=== PATIENT | male | born 1965 | race Caucasian/White ===

== ENCOUNTER → 2019-01-21 12:33 | Outpatient (CLI) | payer BC, SELFPAY ==
--- NOTE | 2019-01-21 12:35 | FL_ITS ---
FL voiding cystourethrogram CLINICAL INDICATION: ITS.REASON: POST OP-PROSTATE CANCER ORDERING PHYSICIAN: Renny Landin MD PATIENT AGE: 53 years Comparison: None Fluoroscopy time: 1 minute and 10 seconds FINDINGS: Study Abroad Coordinator exam is unremarkable. Contrast is instilled into the urinary bladder through a Varghese catheter. Patient could only hold approximately 150 cc of contrast. Fluoroscopic and KUB images are performed. There is no evidence of bladder leak. Post void exam is unremarkable. IMPRESSION: No evidence of contrast extravasation
== END ==
PROVIDERS: PCP Family Medicine; Visit Provider Urology
DX: C61 Malignant neoplasm of prostate (principal)
CPT/HCPCS: 74455; Q9966

== ENCOUNTER → 2019-02-05 10:53 | Outpatient (CLI) | payer BC, SELFPAY ==
[2019-02-05 13:58] LABS: Prostate Specific Ag, Diagnost < 0.05 ng/mL (0.0-4.0)
== END ==
PROVIDERS: Visit Provider Urology
DX: C61 Malignant neoplasm of prostate (principal)
CPT/HCPCS: 36415; 84153

== ENCOUNTER → 2019-05-13 12:38 | Outpatient (CLI) | payer BC, SELFPAY ==
[2019-05-13 14:56] LABS: Prostate Specific Ag, Diagnost 0 ng/mL (0.0-4.0)
== END ==
PROVIDERS: Visit Provider Urology
DX: C61 Malignant neoplasm of prostate (principal)
CPT/HCPCS: 36415; 84153

== ENCOUNTER → 2019-08-11 18:03 | Outpatient (CLI) | payer BC, SELFPAY ==
[2019-08-11 22:28] LABS: Prostate Specific Ag, Diagnost 0 ng/mL (0.0-4.0)
== END ==
PROVIDERS: Visit Provider Urology
DX: C61 Malignant neoplasm of prostate (principal)
CPT/HCPCS: 36415; 84153

== ENCOUNTER 2022-05-04 15:05 | Emergency (ER) | payer BC, SELFPAY ==
[2022-05-04 15:15] VITALS: BP 142/96; PULSE 66; RESP 18; TEMP 36.7; O2SAT 96; BMI 28.5
[2022-05-04 15:28] VITALS: BMI 28.5
[2022-05-04 15:30] VITALS: BP 118/80; PULSE 63; O2SAT 97
--- NOTE | 2022-05-04 15:34 | ECG_ITS ---
APPROVED REPORT Exam: Resting ECG HR:62 bpm ECG Measurements Heart Rate 62 AXES LA 179 P 42 QRSd 83 QRS 12 QT 383 T 37 QTc 388 Conclusion SINUS RHYTHM NORMAL ECG UNCONFIRMED REPORT Electronically signed by : Christiano Parry MD 05/06/2022 08:06:32
--- NOTE | 2022-05-04 15:36 | XR_ITS ---
FINAL REPORT CLINICAL HISTORY: cough, weakness FINDINGS: PA and lateral views of the chest were obtained. There is no prior exam for comparison. The cardiac and mediastinal silhouettes are within normal limits. The lungs are clear. There is no pleural effusion or pneumothorax. No acute osseous abnormality is identified. IMPRESSION: No radiographic evidence of acute cardiac or pulmonary disease. Reviewed, Interpreted and Dictated by Navya Troy MD Transcribed by Kailyn Townsend Authenticated and [facility]
--- NOTE | 2022-05-04 15:44 | PC.NURSE ---
Pt transported to radiology via wheelchair.
[2022-05-04 15:50] LABS: Anion Gap 12.7 mEq/L (5-15); Blood Urea Nitrogen 19 mg/dl (9-20); Carbon Dioxide 27 mmol/L (22.0-30.0); Chloride 104 mmol/L (98-107); Creatinine Clearance Estimated 66 mL/min (50-200); Estimated Glomerular Filt Rate 57 ml/min (>60); GFR (African American) 69 ML/MIN (>60); Glucose 105 mg/dl (74-100); Potassium 4.7 mmoL/L (3.5-5.1); Sodium 139 mmol/L (136-145)
[2022-05-04 16:00] VITALS: BP 114/81; PULSE 65; O2SAT 97
[2022-05-04 16:03] LABS: Troponin I < 0.01 ng/ml (0.00-0.034)
--- NOTE | 2022-05-04 16:11 | CT_ITS ---
PROCEDURE INFORMATION: Exam: CTA Neck With Contrast Exam date and time: 05/04/2022 4:50 PM Age: 56 years old Clinical indication: Weakness; Additional info: R sided weakness TECHNIQUE: Imaging protocol: Computed tomographic angiography of the neck with contrast. 3D rendering (Not supervised by radiologist): MIP and/or 3D reconstructed images were created by the technologist. Radiation optimization: All CT scans at this facility use at least one of these dose optimization techniques: automated exposure control; mA and/or kV adjustment per patient size (includes targeted exams where dose is matched to clinical indication); or iterative reconstruction. Contrast material: ISOVUE 370; Contrast volume: 100 ml; Contrast route: INTRAVENOUS (IV); COMPARISON: CT CERVICAL SPINE WO CON 05/04/2022 4:41 PM FINDINGS: Right common carotid artery: No stenosis. No dissection or occlusion. Right internal carotid artery: No stenosis of the extracranial segment. No dissection or occlusion. Right external carotid artery: No occlusion or stenosis of the origin. Left common carotid artery: No stenosis. No dissection or occlusion. Left internal carotid artery: Trace proximal left ICA calcified atherosclerosis does not contribute to stenosis. Left external carotid artery: No occlusion or stenosis of the origin. Right vertebral artery: The right vertebral artery is dominant. Patent. 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 Patent. The left vertebral artery arises directly from the aortic arch. Soft tissues: Normal. No significant soft tissue swelling. Bones/joints: Mild upper thoracic levoconvex scoliosis. 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 Moderate degenerative changes at C1-C2. Oldd-jc-axebvlze disc height loss and spondylosis with uncovertebral arthropathy at C3-C4. No significant cervical central spinal canal stenoses. Uncovertebral and facet arthropathy causing bilateral neural foraminal stenoses at C3-C4. IMPRESSION: 1. No acute vascular findings in the neck. 2. 0% right ICA stenosis. 3. 0% left ICA stenosis. 4. The vertebral arteries are patent without stenoses. REFERENCES: NASCET CRITERIA. The degree of internal carotid artery stenosis is based on NASCET criteria. Normal is no stenosis. Mild is less than 50% stenosis. Moderate is 50-69% stenosis. Severe is 70% to 99% stenosis. Total occlusion is no detectable patent lumen.
--- NOTE | 2022-05-04 16:11 | CT_ITS ---
PROCEDURE INFORMATION: Exam: CTA Head With Contrast, Arteriography Exam date and time: 05/04/2022 4:50 PM Age: 56 years old Clinical indication: Weakness; Additional info: R sided weakness TECHNIQUE: Imaging protocol: Computed tomographic angiography of the head with contrast. Exam focused on the arteries. 3D rendering (Not supervised by radiologist): MIP and/or 3D reconstructed images were created by the technologist. Radiation optimization: All CT scans at this facility use at least one of these dose optimization techniques: automated exposure control; mA and/or kV adjustment per patient size (includes targeted exams where dose is matched to clinical indication); or iterative reconstruction. Contrast material: ISOVUE 370; Contrast volume: 100 ml; Contrast route: INTRAVENOUS (IV); COMPARISON: CT HEAD/BRAIN WO CON 05/04/2022 4:39 PM FINDINGS: ANTERIOR CIRCULATION: Right internal carotid artery: Unremarkable. Intracranial segment is patent with no significant stenosis. No aneurysm. Right middle cerebral artery: Unremarkable. No occlusion or significant stenosis. No aneurysm. Right anterior cerebral artery: Unremarkable. No occlusion or significant stenosis. No aneurysm. Left internal carotid artery: Unremarkable. Intracranial segment is patent with no significant stenosis. No aneurysm. Left middle cerebral artery: Unremarkable. No occlusion or significant stenosis. No aneurysm. Left anterior cerebral artery: Unremarkable. No occlusion or significant stenosis. No aneurysm. POSTERIOR CIRCULATION: Right vertebral artery: The right vertebral artery is dominant. Patent. 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 Patent. Basilar artery: Unremarkable. No occlusion or significant stenosis. No aneurysm. Right posterior cerebral artery: Patent. There is a origin of the right posterior cerebral artery. Left posterior cerebral artery: Unremarkable. No occlusion or significant stenosis. No aneurysm. Brain: No definite mass, mass effect, or midline shift. Cerebral ventricles: No ventriculomegaly. Bones/joints: Unremarkable. No acute fracture. Soft tissues: Unremarkable. IMPRESSION: No proximal intracranial arterial occlusion or stenosis seen.
--- NOTE | 2022-05-04 16:11 | CT_ITS ---
PROCEDURE INFORMATION: Exam: CT Head Without Contrast Exam date and time: 05/04/2022 4:39 PM Age: 56 years old Clinical indication: Weakness, extremity; Right; Additional info: R sided weakness TECHNIQUE: Imaging protocol: Computed tomography of the head without contrast. Radiation optimization: All CT scans at this facility use at least one of these dose optimization techniques: automated exposure control; mA and/or kV adjustment per patient size (includes targeted exams where dose is matched to clinical indication); or iterative reconstruction. COMPARISON: No relevant prior studies available. FINDINGS: Brain: No evolving territorial infarct or intracranial hemorrhage seen. Hypodensities in the subinsular regions may represent perivascular spaces and/or chronic lacunar infarcts. Cerebral ventricles: No ventriculomegaly. Paranasal sinuses: The right maxillary sinus is completely opacified by mucosal disease. The sinus contents appear partially hyperdense and calcified consistent with inspissated secretions or superimposed fungal sinusitis. Similarly, near complete opacification of both sphenoid sinuses. There is sporadic bilateral ethmoid sinus opacity. A small retention cyst or polyp in the left maxillary sinus. Mastoid air cells: Visualized mastoid air cells are well aerated. Bones/joints: Unremarkable. No acute fracture. Soft tissues: Unremarkable. IMPRESSION: 1. No acute intracranial abnormality seen. 2. Severe, chronic sinusitis, as above.
--- NOTE | 2022-05-04 16:11 | HMH.EDGENADL ---
Discharge Plan Disposition Patient Disposition: Home, Self-Care Condition: Good Chief Complaint: Weakness Prescriptions Prescriptions: New methocarbamol 500 mg tablet 500 mg PO Q8H PRN (Reason: pain) Qty: 20 0RF naproxen 500 mg tablet 500 mg PO Q12H PRN (Reason: pain) Qty: 30 0RF No Action lisinopril 5 mg tablet 5 mg PO DAILY atorvastatin 10 mg tablet 10 mg PO DAILY metformin 500 mg tablet 500 mg PO BID cholecalciferol (vitamin D3) 1,000 unit tablet 1,000 unit PO DAILY mecobalamin (vitamin B12) 1,000 mcg tablet,disintegrating 1,000 mcg SUBLINGUAL DAILY Referrals Referrals: Provider,Referral, MD [Referring] - Enter time for follow up Activity Restrictions/Add. Instructions Additional Instructions/Restrictions: You were evaluated in the emergency department today. Please follow-up with your primary care provider over the next 48 hours. Return to the emergency department for any new or worsening symptoms. 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 by RN): pt states he was at work today when he became exhausted and had to sit down, he states he has had numbness and tingling off and on for 2 weeks in his R arm and R leg, he becomes easily winded when going uphill History of Present Illness HPI narrative: This patient is a 56-year-old male with a history of numbness and tingling of the right upper and lower extremity that has been intermittent for the past month. He states that it is worse in his right leg. He states that he noticed at work today when working overhead with his hands, he got super lightheaded, fatigued, and had to sit down. He states that he also noticed he becomes more short of breath when walking uphill. He denies any recent headaches, vision changes, facial droop, slurred speech, chest pain, abdominal pain, nausea, vomiting, change in bowel movements, rashes, or swelling. He denies any neck or back pain. He denies any recent injuries. He denies any saddle anesthesia, incontinence, or other concerns. Related Data Home Medications Medication Instructions Recorded Confirmed atorvastatin 10 mg tablet 10 mg PO DAILY Cholesterol 11/01/18 05/04/22 cholecalciferol (vitamin D3) 25 1,000 unit PO DAILY Supplement 11/01/18 05/04/22 mcg (1,000 unit) tablet lisinopril 5 mg tablet 5 mg PO DAILY blood pressure 11/01/18 05/04/22 mecobalamin (vitamin B12) 1,000 1,000 mcg sublingual DAILY 11/01/18 05/04/22 mcg disintegrating Supplement tablet,sublingual metformin 500 mg tablet 500 mg PO BID Diabetes 11/01/18 05/04/22 Previous Rx's Medication Instructions Recorded methocarbamol 500 mg tablet 500 mg PO Q8H PRN pain #20 tabs 05/04/22 naproxen 500 mg tablet 500 mg PO Q12H PRN pain #30 tabs 05/04/22 Allergies Allergy/AdvReac Type Severity Reaction Status Date / Time Penicillins [PENICILLINS] Allergy Unknown Verified 08/30/19 11:41 PFSH PFSH Social History Smoking Status: Never smoker alcohol intake: never substance use type: denies use current occupational status: employed household members: spouse housing: house caffeine: No ROS Obtained: Yes All systems reviewed & no additional complaints except as documented 14 point review of system obtained and negative except otherwise mentioned in HPI. Physical Exam General General appearance: alert and in no apparent
--- NOTE | 2022-05-04 16:15 | CT_ITS ---
PROCEDURE INFORMATION: Exam: CT Cervical Spine Without Contrast Exam date and time: 05/04/2022 4:41 PM Age: 56 years old Clinical indication: Numbness TECHNIQUE: Imaging protocol: Computed tomography of the cervical spine without contrast. Radiation optimization: All CT scans at this facility use at least one of these dose optimization techniques: automated exposure control; mA and/or kV adjustment per patient size (includes targeted exams where dose is matched to clinical indication); or iterative reconstruction. COMPARISON: CT HEAD/BRAIN WO CON 05/04/2022 4:39 PM FINDINGS: Bones/joints: 2 mm of degenerative retrolisthesis of C3 on C4. No acute fracture seen. There is kbnu-ze-awigczlh posterior disc height loss with endplate osteophytic ridging at C3-C4. Elsewhere, the cervical spine demonstrates mild prevertebral spondylosis. Degenerative changes are moderate in degree at C2-C3. C2-C3: Mild uncovertebral arthropathy. No stenoses. C3-C4: Slight retrolisthesis. Mild disc osteophyte complex and ligamentum flavum buckling. The central spinal canal remains patent. Uncovertebral and facet arthropathy causing moderate to severe left and moderate right neural foraminal stenoses. C4-C5: No significant disc protrusion. No severe spinal canal stenosis. No significant neural foraminal narrowing. C5-C6: No significant disc protrusion. No severe spinal canal stenosis. No significant neural foraminal narrowing. C6-C7: No significant disc protrusion. No severe spinal canal stenosis. No significant neural foraminal narrowing. C7-T1: No significant disc protrusion. No severe spinal canal stenosis. No significant neural foraminal narrowing. Lungs: Lung apices are normal. Vasculature: Trace proximal left ICA calcified plaque. Soft tissues: Unremarkable. IMPRESSION: Degenerative neural foraminal stenoses at C3-C4.
--- NOTE | 2022-05-04 16:15 | CT_ITS ---
PROCEDURE INFORMATION: Exam: CT Lumbar Spine Without Contrast Exam date and time: 05/04/2022 4:47 PM Age: 56 years old Clinical indication: Numbness TECHNIQUE: Imaging protocol: Computed tomography of the lumbar spine without contrast. Radiation optimization: All CT scans at this facility use at least one of these dose optimization techniques: automated exposure control; mA and/or kV adjustment per patient size (includes targeted exams where dose is matched to clinical indication); or iterative reconstruction. COMPARISON: None FINDINGS: Bones/joints: No acute fracture. Normal alignment. Discs/Spinal canal/Neural foramina: Mild tapering of the spinal canal secondary to short pedicles. At L4-L5: 2.5-3 mm broad-based right greater than left lateral disc bulge. Mild-moderate right lateral recess and mild right neural foraminal stenosis. At L5-S1: Approximate 3 mm predominant central disc bulge. Soft tissues: Unremarkable. IMPRESSION: 1. At L4-L5: 2.5-3 mm broad-based right greater than left lateral disc bulge. Mild-moderate right lateral recess and mild right neural foraminal stenosis. 2. At L5-S1: Approximate 3 mm predominant central disc bulge.
--- NOTE | 2022-05-04 16:15 | CT_ITS ---
PROCEDURE INFORMATION: Exam: CT Thoracic Spine Without Contrast Exam date and time: 05/04/2022 4:44 PM Age: 56 years old Clinical indication: Numbness TECHNIQUE: Imaging protocol: Computed tomography of the thoracic spine without contrast. Radiation optimization: All CT scans at this facility use at least one of these dose optimization techniques: automated exposure control; mA and/or kV adjustment per patient size (includes targeted exams where dose is matched to clinical indication); or iterative reconstruction. COMPARISON: CT CERVICAL SPINE WO CON 05/04/2022 4:41 PM FINDINGS: Bones/joints: Mild scoliosis of the upper thoracic spine convexity to the left. Near complete fusion of the T3 and 4 vertebral bodies on a developmental basis. Discs/Spinal canal/Neural foramina: No significant disc protrusion. No severe spinal canal stenosis. No significant neural foraminal narrowing. Soft tissues: Unremarkable. IMPRESSION: No evidence of acute osseous injury.
--- NOTE | 2022-05-04 16:39 | PC.NURSE ---
IV RESTARTED , AND RADIOLOGY HERE TO GET PT FOR CT
--- NOTE | 2022-05-04 16:41 | PC.NURSE ---
Pt transported to radiology via wheelchair.
[2022-05-04 16:59] LABS: Basophils # 0.1 K/mm3 (0-0.2); Eosinophils # 0.1 K/mm3 (0.0-0.4); Eosinophils % 0.7 % (0.1-12.0); Hematocrit 43.3 % (42.0-52.0); Hemoglobin 13.8 g/dL (14.1-18.0); Lymphocytes # 1.5 K/mm3 (0.7-4.5); Lymphocytes % 18.2 % (10-50); Mean Corpuscular HGB Conc 31.8 g/dL (31.8-35.4); Mean Corpuscular Hemoglobin 30.4 pg (27.0-31.2); Mean Corpuscular Volume 95.6 fl (80-94); Mean Platelet Volume 8.7 fl (7.4-10.4); Monocytes # 0.4 K/mm3 (0.1-1.0); Neutrophils # 6.1 K/mm3 (1.8-7.8); Platelet Count 232 K/mm3 (142-424); Red Blood Count 4.53 M/mm3 (4.60-6.20); Red Cell Distribution Width 13.3 % (11.5-17.5); White Blood Count 8.1 K/mm3 (4.8-10.8)
--- NOTE | 2022-05-04 17:05 | PC.NURSE ---
Rounded on pt and updated him and his family member that is at bedside. No complaints at this time.
[2022-05-04 17:30] VITALS: BP 117/75; PULSE 64; O2SAT 98
[2022-05-04 18:30] VITALS: BP 130/85; PULSE 63; O2SAT 98
--- NOTE | 2022-05-04 18:50 | PC.NURSE ---
DIRK ROTHMAN reports she does not want the 2nd troponin. Kwame in lab has been made aware.
[2022-05-04 19:39] VITALS: BP 130/85; PULSE 62; RESP 18; TEMP 36.7; O2SAT 98
== END 2022-05-04 19:41 | disposition home or self-care (01) ==
PROVIDERS: Emergency Provider Emergency Medicine; PCP Family Medicine
DX: M50.10 Cervical disc disorder with radiculopathy, unspecified cervical region (principal); Z79.84 Long term (current) use of oral hypoglycemic drugs; Z79.899 Other long term (current) drug therapy; Z88.0 Allergy status to penicillin; E11.9 Type 2 diabetes mellitus without complications; E78.5 Hyperlipidemia, unspecified
CPT/HCPCS: 70450; 70496; 70498; 71046; 72125; 72128; 72131; 80048; 84484; 85025; 93005; 99285; Q9967

== ENCOUNTER → 2022-05-30 06:45 | Outpatient (CLI) | payer BC, SELFPAY ==
--- NOTE | 2022-05-30 | CA_ITS ---
APPROVED REPORT Exam: Exercise Treadmill Technologist: Ruth Esqueda, Ht: 5 ft 4 in Wt: 166 lbs BSA: 1.81 m2 HR: 55 bpm BP: 153/82 mmHg Rhythm: sinus jarrett, early repolarizatioon changes Medical History Medical History: HTN, Hyperlipidemia, Diabetes Medications: Metformin,,,,, Vit D3,,,,, Vit B12,,,,, AtorvaASTATIN,,,,, Cardiac Risk Factors: HTN, Hyperlipidemia, Diabetes (non-insulin) Stress Test Details Test: Devang HR Resting HR: 65 bpm Max Heart Rate (APMHR): 162.680462 bpm Max HR Achieved: 135 bpm Target HR (85% APMHR): 137.847162 bpm % of APMHR: 83.33 Recovery HR: 108 bpm BP Resting BP: 142/88 mmHg Max BP: 180/88 mmHg Recovery BP: 150.0/90.0 mmHg ECG Resting ECG: sinus jarrett, early repolarization changes Clinical Exercise duration: 08:01 min Highest Stage Achieved: Exercise capacity: 10.1 METs Stress ECG Conclusion During devang protocol pt exercised total of 8 minutes into stage 3. No CP noted. No arrhytmias noted. Normal ST response to exercise. Normal GXT to HR achieved, 82% of PM. Myoview images reported separately. Test Summary RECOVERY 04:00 0.0 0.0 63 . 145/ 84 . . REST . . . . . . . Standing REST 06:03 0.0 0.0 65 . 142/ 88 . . Stage 1 01:00 10.0 1.7 93 . . . . Stage 1 02:00 10.0 1.7 102 . . . . Stage 1 03:00 10.0 1.7 100 . 176/ 90 . . Stage 2 01:00 12.0 2.5 109 . . . . Stage 2 02:00 12.0 2.5 112 . . . . Stage 2 03:00 12.0 2.5 113 . 180/ 88 . . Stage 3 . . . . . . . Myoview Injected Stage 3 01:00 14.0 3.4 128 . . . . Stage 3 02:00 14.0 3.4 133 . . . . Stage 3 02:01 14.0 3.4 133 . . . Stop exercise at 08:01 RECOVERY 01:00 0.0 0.0 108 . . . . RECOVERY 02:00 0.0 0.0 76 . 150/ 90 . . RECOVERY 03:00 0.0 0.0 70 . 145/ 84 . . RECOVERY 04:00 0.0 0.0 63 . 145/ 84 . . RECOVERY 05:00 0.0 0.0 63 . 142/ 78 . . RECOVERY 05:19 0.0 0.0 64 . 142/ 78 . . Electronically signed by : Steven Cheema MD 05/31/2022 06:25:21
--- NOTE | 2022-05-30 06:53 | NM_ITS ---
APPROVED REPORT Exam: Nuclear Stress Test Indication: SOB, Fatigue, HTN, DM, High cholesterol, Family history Patient Location: Outpatient Stress Tech: Ruth DARLING Tech:Sherry Elziabeth, ARRT, RT (R)(N) Ht: 5 ft 4 in Wt: 166 lbs HR: 65 bpm BP: 142/88 mmHg BSA: 1.81 m2 BMI: 28.4 History: SOB, Fatigue, HTN, DM, High cholesterol, Family history Procedure: Patient exercised on Devang protocol 8:01 minutes and sec, resting heart rate 65 bpm, resting blood pressure 142/88 mmHg, with exercise maximum heart rate achived was 135 bpm which is 83 % of the maximum predicted heart rate and blood pressure was 180/88 mmHg. Test was stopped due to SOB. Patient denied any complaint of chest pain. Patient has good exercise capacity, achieved 10.1 METs of workload on treadmill, the blood pressure response to exercise was Adequate. Electrocardiogram Resting electrocardiogram shows sinus bradycardia, with exercise there is less than 1.[address] segment depression noted from the baseline EKG. The EKG portion of the exercise Myoview was nondiagnostic as patient did not achieve the target heart rate. Cardiac Stress and Resting SPECT Images: Cardiac Stress and Resting SPECT images were obtained using technetium 99m Myoview 30.2 mCi stress and 10.38 mCi at rest. Gated SPECT for analysis of segmental wall motion and calculation of the ejection fraction also done. Prone images were also obtained. Cardiac stress and rest SPECT images show uniform myocardial activity without segmental perfusion abnormality, computer derived ejection fraction is 53% with no regional wall motion abnormality, right ventricle is normal size and contractility. Conclusion: 1. The EKG portion of the exercise Myoview was nondiagnostic as patient did not achieve the target heart rate, patient has good exercise capacity achieved 10.1 METs of workload on treadmill, the blood pressure response to exercise was adequate, there was no exercise-induced chest discomfort. 2. No scintigraphic evidence of reversible ischemia seen, computer derived ejection fraction 53% with no regional wall motion abnormality, right ventricle is normal size and contractility. 3. Normal exercise Myoview study at 83% of the maximal predicted heart rate. Electronically signed by : Steven Cheema MD 05/31/2022 06:28:12
--- NOTE | 2022-05-30 07:12 | CA_ITS ---
FINAL REPORT TECHNIQUE: Color Doppler, duplex Doppler and haddad scale sonography of the bilateral neck arterial vasculature was performed. Velocities were measured in the carotid arteries. Stenosis evaluation based on the validated velocity criteria. CLINICAL HISTORY: VBI,DIZZINESS,HTN,HLD,DM FINDINGS: The peak systolic velocity of the right common carotid artery is 64 cm/s. The peak systolic velocity of the right internal carotid artery is 89 cm/s and end diastolic velocity 40 cm/s. The ICA/CCA ratio is 1.8. A small amount of plaque is present. The right external carotid artery is patent. The right vertebral artery is patent with antegrade flow. The peak systolic velocity of the left common carotid artery is 67 cm/s. The peak systolic velocity of the left internal carotid artery is 80 cm/s and end diastolic velocity 40 cm/s. The ICA/CCA ratio is 1.3. A small amount of plaque is present. The left external carotid artery is patent.The left vertebral artery is patent with antegrade flow. IMPRESSION: Less than 50% bilateral carotid stenoses. Bilateral patent vertebral arteries with antegrade flow. If indicated, CTA or MRA could further evaluate. Reviewed, Interpreted and Dictated by Maged Calderón MD Transcribed by Charisma Szymanski Authenticated and . [facility]
--- NOTE | 2022-05-30 08:52 | HMH.ITSHM ---
Current Home Medications as stated by this patient Peter Holbrook or underwriting service representative. []NAPROXEN METHOCARBAMOL METFORMIN VITAMIN B12 LISONOPRIL VITAMIN D3 ATORVASTATIN
== END ==
PROVIDERS: PCP Family Medicine; Visit Provider Family Medicine
DX: R10.13 Epigastric pain (principal); G45.0 Vertebro-basilar artery syndrome
CPT/HCPCS: 78452; 93017; 93880; A9502

== ENCOUNTER → 2022-06-01 07:48 | Outpatient (CLI) | payer BC, SELFPAY ==
[2022-06-01 08:33] LABS: Blood Urea Nitrogen 23 mg/dl (9-20); Estimated Glomerular Filt Rate 48 ml/min (>60); GFR (African American) 58 ML/MIN (>60)
--- NOTE | 2022-06-01 08:39 | CT_ITS ---
FINAL REPORT TECHNIQUE: Thin section axial images were performed through the head and neck and a CTA protocol. MIP reconstruction sagittal and coronal images were submitted. This study was performed with techniques to keep radiation doses as low as reasonably achievable (ALARA). Individualized dose reduction techniques using automated exposure control or adjustment of mA and/or kV according to the patient's size were employed. CLINICAL HISTORY: vertebrobasila insufficiency FINDINGS: CTA head: The distal vertebral, basilar and distal internal carotid arteries have an unremarkable appearance. No aneurysm is seen. Major intracranial vessels are patent without significant stenosis. There is extensive mucoperiosteal thickening in the right maxillary sinus and throughout the sphenoid sinus and ethmoid air cells consistent with chronic sinusitis. IMPRESSION: No stenosis or aneurysm of the visualized intracranial vasculature. Chronic sinusitis as described. Reviewed, Interpreted and Dictated by Maged Calderón MD Transcribed by Markus Kaplan Authenticated and [facility]
--- NOTE | 2022-06-01 08:39 | CT_ITS ---
FINAL REPORT CLINICAL HISTORY: VERTEBROBASILAR INSUFFICIENCY FINDINGS: Thin section axial CT with IV contrast supplemented with multiplanar reconstruction under CT angiogram protocol. This study was performed with techniques to keep radiation doses as low as reasonably achievable (ALARA). Individualized dose reduction techniques using automated exposure control or adjustment of mA and/or kV according to the patient's size were employed. NASCET criteria was utilized during interpretation. Aortic arch: Arch shows no significant narrowing. Great vessel origins are widely patent. Right carotid: No significant stenosis is seen of the cervical common or internal carotid artery. Left carotid: There is minimal vascular calcification at the bifurcation. No significant stenosis is seen of the cervical common or internal carotid artery. Vertebral: Left vertebral artery is dominant. No significant stenosis is present. IMPRESSION: Minimal vascular calcification at the left carotid bifurcation. No significant carotid stenosis. Reviewed, Interpreted and Dictated by Maged Calderón MD Transcribed by Markus Kaplan Authenticated and [facility]
== END ==
PROVIDERS: PCP Family Medicine; Visit Provider Family Medicine
DX: R10.13 Epigastric pain (principal); G45.0 Vertebro-basilar artery syndrome
CPT/HCPCS: 36415; 70496; 70498; 82565; 84520; Q9967

== ENCOUNTER 2023-07-24 23:37 | Emergency (ER) | payer BC, SELFPAY ==
[2023-07-24 23:39] VITALS: BP 114/71; PULSE 93; RESP 16; TEMP 36.8; O2SAT 94; BMI 28.3
--- NOTE | 2023-07-24 23:52 | ECG_ITS ---
APPROVED REPORT Exam: Resting ECG HR:91 bpm ECG Measurements Heart Rate 91 AXES ND 161 P 51 QRSd 89 QRS 36 QT 330 T 71 QTc 379 Conclusion SINUS RHYTHM LOW QRS VOLTAGE IN PRECORDIAL LEADS [QRS DEFLECTION < 1.0 mV IN CHEST LEADS] BORDERLINE ECG UNCONFIRMED REPORT Electronically signed by : Christiano Parry MD 07/25/2023 17:09:40
[2023-07-24 23:55] LABS: Basophils # 0.1 K/mm3 (0-0.2); Basophils % 0.8 % (0.1-2.0); Eosinophils # 0.2 K/mm3 (0.0-0.4); Eosinophils % 1.3 % (0.1-12.0); Hematocrit 47.5 % (42.0-52.0); Hemoglobin 16.5 g/dL (14.1-18.0); Lymphocytes # 2.4 K/mm3 (0.7-4.5); Mean Corpuscular HGB Conc 34.8 g/dL (31.8-35.4); Mean Corpuscular Hemoglobin 32.3 pg (27.0-31.2); Mean Corpuscular Volume 92.8 fl (80-94); Mean Platelet Volume 8.5 fl (7.4-10.4); Monocytes # 0.6 K/mm3 (0.1-1.0); Monocytes % 4.6 % (1.7-9.3); Neutrophils # 9.8 K/mm3 (1.8-7.8); Neutrophils % 75.3 % (37.0-80.0); Platelet Count 271 K/mm3 (142-424); Red Blood Count 5.12 M/mm3 (4.60-6.20); Red Cell Distribution Width 13.2 % (11.5-17.5)
[2023-07-25] VITALS: BP 110/80; PULSE 91; RESP 13; O2SAT 92
[2023-07-25] LABS: Chloride 97 mmol/L (98-107); Potassium 4.4 mmoL/L (3.5-5.1); Sodium 137 mmol/L (136-145)
[2023-07-25 00:03] LABS: Alanine Aminotransferase 73 U/L (12-78); Albumin Level 5.4 g/dl (3.5-5.0); Albumin/Globulin Ratio 1.5 (1.1-1.8); Alkaline Phosphatase 61 U/L (38-126); Anion Gap 16.4 mEq/L (5-15); Aspartate Amino Transferase 58 U/L (17-59); Bilirubin,Total 0.7 mg/dl (0.2-1.3); Blood Urea Nitrogen 22 mg/dl (9-20); Calcium 9.9 mg/dl (8.4-10.2); Carbon Dioxide 28 mmol/L (22.0-30.0); Creatinine Clearance Estimated 53 mL/min (50-200); Estimated Glomerular Filt Rate 44 ml/min (>60); GFR (African American) 54 ML/MIN (>60); Globulin 3.5 g/dL (1.3-3.2); Glucose 220 mg/dl (74-100); Lipase 186 U/L (23-300); Total Protein,Serum 8.9 g/dl (6.3-8.2)
--- NOTE | 2023-07-25 00:07 | HMH.EDGENADL ---
Discharge Plan Disposition Patient Disposition: Home, Self-Care Condition: Good Chief Complaint: Nausea/Vomiting/Diarrhea Prescriptions Prescriptions: No Action lisinopril 5 mg tablet 5 mg PO DAILY atorvastatin 10 mg tablet 10 mg PO DAILY metformin 500 mg tablet 500 mg PO BID cholecalciferol (vitamin D3) 1,000 unit tablet 1,000 unit PO DAILY mecobalamin (vitamin B12) 1,000 mcg tablet,disintegrating 1,000 mcg SUBLINGUAL DAILY Ozempic 0.25 mg or 0.5 mg(2 mg/1.5 mL) pen injector 0.25 mg SQ WEEKLY Referrals Follow up/Referrals: Joshua Tam MD [Primary Care Provider] - See instructions Clinical Impressions Clinical Impression: Viral gastroenteritis Instructions Patient Instructions: Viral Gastroenteritis Discharge ED Provider: Damairs Kelly General Adult HPI General Chief complaint: Nausea/Vomiting/Diarrhea Stated complaint: Diarrhea,nausea,toes and fingers cramping Time Seen by Provider: 07/24/23 23:41 Mode of Arrival: Ambulatory Source of Information: Patient Limitations: No Limitations Description of Symptoms (Recalled from ER Triage Doc. by RN): pt states hasn't been feeling well the past week with body aches, then today at 4 began having diarrhea and bilateral hand and feet cramping.pt denies abd pain and vomitting History of Present Illness HPI narrative: Patient has a PMHx significant for type 2 diabetes, hypertension, hyperlipidemia who presents to the ED with complaints of diarrhea. Patient notes that for the past week, he has been having generalized malaise, fatigue, diffuse body aches. Starting around 4 PM, he started experiencing profuse diarrhea, all nonbloody. Patient notes he has had more than 12 episodes of diarrhea. Patient denies any nausea, vomiting, abdominal pain, inability tolerate p.o. intake. Patient notes that around 6 PM, he started experiencing some mild cramping in his hands, toes, and lower extremities, which happens when he gets dehydrated according to the patient. Around 8:30 PM, patient notes that he had heartburn, which she describes as a epigastric burning sensation. Patient notes that he took a PPI, 2 doses of Imodium. Patient notes that his heartburn has improved and the patient has not had diarrhea in the last hour prior to arrival. Related Data Home Medications Medication Instructions Recorded Confirmed atorvastatin 10 mg tablet 10 mg PO DAILY Cholesterol 11/01/18 07/24/23 cholecalciferol (vitamin D3) 25 1,000 unit PO DAILY Supplement 11/01/18 07/24/23 mcg (1,000 unit) tablet lisinopril 5 mg tablet 5 mg PO DAILY blood pressure 11/01/18 07/24/23 mecobalamin (vitamin B12) 1,000 1,000 mcg sublingual DAILY 11/01/18 07/24/23 mcg disintegrating Supplement tablet,sublingual metformin 500 mg tablet 500 mg PO BID Diabetes 11/01/18 07/24/23 semaglutide 0.25 mg or 0.5 mg (2 0.25 mg SQ WEEKLY 07/24/23 07/24/23 mg/1.5 mL) subcutaneous pen injector Allergies Allergy/AdvReac Type Severity Reaction Status Date / Time Penicillins [PENICILLINS] Allergy Unknown Verified 08/30/19 11:41 [facility] Disclaimer: The information contained in this section may have been updated after the patient was seen, as this information can be updated by other users. Social History (Updated 05/04/22 @ 20:47 by Archana Bowen DO) Smoking Status: Never smoker alcohol intake: never substance use type: denies use current occupational status: employed Travel in the last 8 weeks: None household members: spouse housing: house caffeine: No ROS Obtained: Yes All systems reviewed & no additional complaints except as documented Physical Exam General General appearance: alert and in no apparent distress Head Head exam: atraumatic, normocephalic and normal inspection Eye Eye exam: Present normal appearance, PERRL and EOMI; Absent scleral icterus or nystagmus ENT ENT exam: Present normal exam, mucous membranes moist an
[2023-07-25 00:27] LABS: Troponin I < 0.01 ng/ml (0.00-0.034)
--- NOTE | 2023-07-25 00:29 | PC.NURSE ---
in room talking with patient at this time.
[2023-07-25 00:30] VITALS: BP 115/82; PULSE 79; RESP 20; O2SAT 95
[2023-07-25 01:00] VITALS: BP 131/84; PULSE 81; RESP 21; O2SAT 97
[2023-07-25 01:30] VITALS: BP 121/78; PULSE 77; RESP 15; O2SAT 97
[2023-07-25 01:54] VITALS: BP 123/74; PULSE 72; RESP 16; TEMP 36.8; O2SAT 97
== END 2023-07-25 01:57 | disposition home or self-care (01) ==
PROVIDERS: Emergency Provider Emergency Medicine; PCP Family Medicine
DX: R19.7 Diarrhea, unspecified (principal); R53.81 Other malaise; E11.9 Type 2 diabetes mellitus without complications; I10 Essential (primary) hypertension
CPT/HCPCS: 80053; 83690; 84484; 85025; 93005; 96360; 99285

== ENCOUNTER 2024-03-11 19:08 | Emergency (ER) | payer BC, SELFPAY ==
[2024-03-11 19:15] VITALS: BP 118/77; PULSE 79; RESP 20; TEMP 36.9; O2SAT 97; BMI 28.6
--- NOTE | 2024-03-11 19:15 | XR_ITS ---
PROCEDURE INFORMATION: Exam: XR Right Hand Exam date and time: 03/11/2024 7:10 PM Age: 58 years old Clinical indication: Injury or trauma; Other: Smashed; Blunt trauma (contusions or hematomas); Hand; Right TECHNIQUE: Imaging protocol: Radiologic exam of the right hand. Views: 3 or more views. COMPARISON: No relevant prior studies available. FINDINGS: Bones/joints: No acute fracture identified. Mild degenerative changes of the hand and wrist most pronounced involving the 2nd and 3rd MCP joints. Incidental soft tissue metallic foreign bodies noted adjacent to the thumb proximal phalange and between the 1st and 2nd metacarpals and the anterior distal forearm region. Soft tissues: See Bones/joints finding. IMPRESSION: No acute fracture. Additional findings as above.
--- NOTE | 2024-03-11 19:20 | PC.NURSE ---
PATIENT'S RIGHT THUMB/LACERATION CLEANED WITH HIBICLENSE AND STERILE WATER AT THIS TIME
[2024-03-11] MEDS: KETOROLAC 60MG/2ML VIAL 60 MG IM (19:39)
[2024-03-11] MEDS: LIDOCAINE 1% PF 2ML AMPULE 2 ML SQ (19:40)
--- NOTE | 2024-03-11 20:15 | EXP.UTC ---
Discharge Plan Disposition Patient Disposition: Home, Self-Care Condition: Good Prescriptions Prescriptions: New ibuprofen 800 mg tablet 800 mg PO TID PRN (Reason: pain) Qty: 30 0RF Rx Instructions: May start tomorrown No Action atorvastatin 40 mg tablet 40 mg PO DAILY metformin 500 mg tablet 500 mg PO DAILY Ozempic 0.25 mg or 0.5 mg (2 mg/3 mL) pen injector 0.25 mg SQ WEEKLY Referrals Follow up/Referrals: Joshua Tam MD [Primary Care Provider] - See instructions Activity Restrictions/Add. Instructions Additional Instructions/Restrictions: Keep thumb dry for the next 24 hours. Do not take Ibuprofen today. Return for suture removal in 7-10 days. If signs and symptoms of infection, return to clinic or go to PCP Clinical Impressions Clinical Impression: Laceration of thumb without damage to nail Qualifiers: Encounter type: initial encounter Foreign body presence: unspecified Laterality: right Qualified Code(s): S61.011A - Laceration without foreign body of right thumb without damage to nail, initial encounter Instructions Patient Instructions: DI for Suture Removal, DI for Laceration Repair -- Simple Discharge ED Provider: Kristel Regalado [facility] HPI General Stated complaint: AO 03/11/24 1745 injury right thumb Mode of Arrival: Ambulatory Source of Information: Patient Limitations: No Limitations Time Seen by Provider: 03/11/24 19:26 Description of Symptoms (Recalled from Triage Doc. by RN): PATIENT REPORTS HE WAS HELPING A FRIEND WORKING IN [employer] THIS EVENING WHEN HE SMASHED HIS RIGHT THUMB IN A PIECE OF FARM EQUIPMENT. LACERATION NOTED TO RIGHT THUMB. ROM WNL. PATIENT DOES REPORT SOME NUMBNESS IN TIP OF RIGHT THUMB. PATIENT STATES HE IS UP TO DATE ON TDAP HEENT Symptoms (Recalled from RN notes): No Resp Symptoms (Recalled from RN notes): No Skin Symptoms (Recalled from RN notes): Yes MS Symptoms (Recalled from RN notes): Yes Functional Status (Recalled from RN notes): WNL History of Present Illness Provider Complaint: PATIENT REPORTS HE WAS HELPING A FRIEND WORKING IN [employer] THIS EVENING WHEN HE SMASHED HIS RIGHT THUMB IN A PIECE OF FARM EQUIPMENT. LACERATION NOTED TO RIGHT THUMB. ROM WNL. PATIENT DOES REPORT SOME NUMBNESS IN TIP OF RIGHT THUMB. PATIENT STATES HE IS UP TO DATE ON TDAP Related Data Home Medications Medication Instructions Recorded Confirmed atorvastatin 40 mg tablet 40 mg PO DAILY 03/11/24 03/11/24 metformin 500 mg tablet 500 mg PO DAILY 03/11/24 03/11/24 semaglutide 0.25 mg or 0.5 mg (2 0.25 mg SQ WEEKLY 03/11/24 03/11/24 mg/3 mL) subcutaneous pen injector (Ozempic) Previous Rx's Medication Instructions Recorded ibuprofen 800 mg tablet 800 mg PO TID PRN pain #30 tabs 03/11/24 Allergies Allergy/AdvReac Type Severity Reaction Status Date / Time Penicillins [PENICILLINS] Allergy Unknown Verified 08/30/19 11:41 Worker's Comp Is this a Worker's Comp case?: No [facility] Disclaimer: The information contained in this section may have been updated after the patient was seen, as this information can be updated by other users. Social History (Updated 05/04/22 @ 20:47 by Archana Bowen DO) Smoking Status: Never smoker alcohol intake: never substance use type: denies use current occupational status: employed Travel in the last 8 weeks: None household members: spouse housing: house caffeine: No ROS Obtained: Yes All systems reviewed & no additional complaints except as documented Constitutional Constitutional: Reports system reviewed and no additional complaints, except as documented Eyes Eyes: Reports system reviewed and no additional complaints, except as documented ENT Ears, Nose, Mouth, and Throat: Reports system reviewed and no additional complaints, except as documented Cardiovascular Cardiovascular: Reports system reviewed and no additional complaints, except as documented Respiratory Respiratory: Reports system reviewed and no additional complaints, except as documented Gastrointestinal Gastrointestingal: Reports system reviewed and no additional complaints, except as documented Genitourinary Male Genitourinary: Reports system reviewed and no additional complaints, except as documented Musculoskeletal Musculoskeletal: Reports system reviewed and no additional complaints, except as documented, Reports arthralgias and Reports joint swelling Integumentary/Breasts Skin/Breast: Reports system reviewed and no additional complaints, except as documented Comments: right thumb laceration Neurologic Neurologic: Reports system reviewed and no additional complaints, except as documented Endocrine Endocrine: Reports system reviewed and no additional complaints, except as documented Hematologic/Lymphatic Henatologic/Lymphatic: Reports system reviewed and no additional complaints, except as documented Allergic/Immunologic Allergic/Immunologic: Reports system reviewed and no additional complaints, except as documented Physical Exam General General appearance: alert Comment: in pain Head Head exam: atraumatic and normocephalic Eye Eye exam: Present normal appearance ENT ENT exam: Present normal exam Neck Neck exam: Present normal inspection Chest Chest inspection: Present normal inspection and symmetric chest wall rise Respiratory Respiratory exam: Present normal lung sounds bilaterally Cardiovascular Cardiovascular exam: Present regular rate, normal rhythm and normal heart sounds Abdominal Exam Abdominal exam: Present soft and normal bowel sounds Extremities Exam Extremities exam: Present tenderness, normal capillary refill, edema and joint swelling Expanded Upper Extremity Exam Right: Shoulder exam: Present normal inspection Arm exam: Present normal inspection Elbow exam: Present normal inspection Forearm/Wrist exam: Present normal inspection Hand exam: Present tenderness, swelling and laceration Hand L/R back image: 1. laceration approx 1/2 inch Vascular exam: Normal capillary refill, radial pulse and ulnar pulse Back Exam Back exam: Present normal inspection Neurological Exam Neurological exam: Present alert and oriented X3 Psychiatric Psychiatric exam: Present normal affect and normal mood Skin Skin exam: Present warm, dry and intact Lymphatic Lymphatic Findings: no adenopathy Medical Decision Making Matt Inquiry Pt receiving controlled substance: No Matt was queried for this patient: No Vital Signs: 03/11/24 19:15 Temperature 98.4 F Temperature Source Oral Pulse Rate [Left Brachial] 79 Respiratory Rate 20 Blood Pressure [Left Arm] 118/77 Blood Pressure Mean [Left Arm] 90 Blood Pressure Source [Left Arm] Automatic Cuff Blood Pressure Position [Left Arm] Sitting 02 Sat by Pulse Oximetry 97 Oxygen Delivery Method Room Air Orders (Tests/Meds): ED MEDICATIONS Generic Name Dose Route Start Last Admin Trade Name Freq PRN Reason Stop Dose Admin Ketorolac Tromethamine 60 mg 03/11/24 19:33 03/11/24 19:39 Ketorolac 60mg/2ml Vial IM 03/11/24 19:34 60 mg ONCE ONE Administration Lidocaine HCl 2 ml 03/11/24 19:34 03/11/24 19:40 Lidocaine 1% Pf 2ml Ampule SQ 03/11/24 19:35 2 ml ONCE ONE Administration ORDERS Category Date Time Status Hand XR right minimum 3 views [XR hand RT min 3V] Stat Exams 03/11/24 19:15 Completed Radiology Data #1: Image(s): Hand Image Reviewed: Yes I reviewed the patient's radiology results and Yes I have reviewed radiologist's interpretation FINDINGS: Bones/joints: No acute fracture identified. Mild degenerative changes of the hand and wrist most pronounced involving the 2nd and 3rd MCP joints. Incidental soft tissue metallic foreign bodies noted adjacent to the thumb proximal phalange and between the 1st and 2nd metacarpals and the anterior distal forearm region. Soft tissues: See Bones/joints finding. IMPRESSION: No acute fracture. Additional findings as above. Procedures Laceration Laceration 1: Site: thumb Side (If applicable): right Size (cm): 1.2 Description: linear and clean Depth: simple, single layer Local Anesthetic: lidocaine 1% Amount of anesthesia used (mL): 2 Pre-repair: irrigated extensively Skin layer closed with: nylon Size (cm): 5-0 Number of sutures: 2 Technique: simple, interrupted
[2024-03-11 20:19] VITALS: BP 118/77; PULSE 79; RESP 20; TEMP 36.9; O2SAT 97
== END 2024-03-11 20:23 | disposition home or self-care (01) ==
PROVIDERS: Emergency Provider Nurse Practitioner Family; PCP Family Medicine
DX: S61.011A Laceration without foreign body of right thumb without damage to nail, initial encounter (principal); W26.8XXA Contact with other sharp object(s), not elsewhere classified, initial encounter
CPT/HCPCS: 12001; 73130; 96372; 99204; 99212; G0463; J1885

== ENCOUNTER 2024-04-18 07:16 | Day surgery (SDC) | payer BC, SELFPAY ==
[2024-04-15 14:14] VITALS: BMI 27.1
[2024-04-18 07:33] VITALS: BP 126/84; PULSE 75; RESP 18; TEMP 36.9; O2SAT 96; BMI 27.1
[2024-04-18] MEDS: LACTATED RINGERS 1000ML 1,000 ML 25 ML IV (07:38)
--- NOTE | 2024-04-18 08:24 | EXP.ANES.CKL ---
[facility] Disclaimer: The information contained in this section may have been updated after the patient was seen, as this information can be updated by other users. Medical History Prostate cancer Diabetes mellitus, type 2 Hyperlipidemia Surgical History History of prostate surgery Family History Father Prostate cancer Social History Smoking Status: Never smoker alcohol intake: never substance use type: denies use current occupational status: employed Travel in the last 8 weeks: None household members: spouse housing: house caffeine: No [facility] Anesthesia Checklist Patient Identification Patient Identification: Arm Band Structural Data Admitted From: Home Planned Operative Procedure/s: Colonoscopy Consent for Planned Operative Procedure(s) Verified: Yes Verified Documents: Surgical Consent and History and Physical NPO Status Verified Time NPO: 00:00 Additional verifications Anesthesia Reactions: No Hx Blood Transfusions: No Blood Transfusion Reaction: No Airway Assessment Mallampati Score:: Class II C-Spine Mobility Assessed: Yes TMJ Mobility Assessed: Yes Dentition: Poor Dentition Neurological Assessment Level of Consciousness: Awake, Alert and Appropriate Anesthesia Plan Anesthesia Risk discussed: Yes Anesthesia Plan: Verified ASA Class: II Anesthesia Type: MAC
--- NOTE | 2024-04-18 08:33 | P.PCN_ITS ---
Procedure: Date: 04/18/24 Patient Date of :: 1965 Procedure Performed:: Total colonoscopy with polypectomy using cold snare Indications:: Patient is a 58-year-old male who presents for follow-up surveillance colonoscopy. He has a family history of colon cancer in his father diagnosed when he was in his mid 70s. I did colonoscopy 11/12/2018 at which time he had a polypoid lymphoid aggregate removed. . Performing Provider:: Ra Glover MD Referring Provider:: Kam Tam MD . Sedation:: MAC sedation Procedure:: Patient history was obtained and appropriate physical examination was performed. Patient's medications and allergies were reviewed. Informed consent was obtained after explaining the benefits, alternatives, and risks of the procedure including, but not limited to, bleeding, perforation, missed lesions, and adverse reaction to anesthesia medications. Patient was transported to endoscopy procedure room. Patient was connected to monitoring devices. Throughout the procedure the patient's blood pressure, pulse, and oxygen saturations were monitored continuously. Patient identification and planned procedure were verified by the staff. Patient was positioned in lateral decubitus position. Digital anorectal exam was performed. Variable stiffness Olympus colonoscope was inserted and advanced under direct visualization to the cecum. Adequacy of the colonic preparation was noted. The colonoscope was advanced a short distance into the terminal ileum. The colonoscope was then slowly withdrawn while carefully examining the color, texture, anatomy, and integrity of the mucosoa circumferentially. Within the rectum retroflexion was performed. Colonoscope was then withdrawn. Impression: There was some patchy pasty adherent stool to the dubon of the colon which was u nable to be fully cleared. There was a tiny minuscule polyp in the ascending colon which was removed with cold cutting snare and retrieved with biopsy forceps. He had some rare sigmoid diverticuli . Findings:: Minuscule polyp ascending colon Rare diverticuli . Recommendations:: Likely repeat colonoscopy 5 years given family history in his father. Complications:: None immediately apparent Estimated blood obtained (mL): 1 Colonoscopy Component Colonoscopy Component Was a colonoscopy performed during today's procedure?: Yes Recommended follow up colonoscopy of at least 10 years?: No If no, follow up colonoscopy recommended in ___ years?: 5 Reason for not recommending >/= 10 yr follow-up interval?: See above
[2024-04-18 08:48] VITALS: O2SAT 97
[2024-04-18 09:15] VITALS: BP 101/75; PULSE 73; RESP 14; O2SAT 95
[2024-04-18 09:25] VITALS: BP 117/79; PULSE 60; RESP 16; O2SAT 97
[2024-04-18 09:35] VITALS: BP 120/76; PULSE 70; RESP 16; O2SAT 97
[2024-04-18 09:45] VITALS: BP 123/86; PULSE 72; RESP 16; O2SAT 96
[2024-04-19 10:36] LABS: POC Glucose,Bedside 141 (70-110)
== END 2024-04-18 11:00 | disposition home or self-care (01) ==
PROVIDERS: PCP Family Medicine; Visit Provider Surgery
PROC: 0DJD8ZZ Inspection of Lower Intestinal Tract, Via Natural or Artificial Opening Endoscopic (ICD-10-PCS; CPT 45385; principal; 2024-04-18 08:30)
DX: Z12.11 Encounter for screening for malignant neoplasm of colon (principal); Z80.0 Family history of malignant neoplasm of digestive organs; K57.30 Diverticulosis of large intestine without perforation or abscess without bleeding; D12.2 Benign neoplasm of ascending colon; E11.9 Type 2 diabetes mellitus without complications
CPT/HCPCS: 45385; 82962; J7120